=== PATIENT | female | born 1960 | race Caucasian/White ===

== ENCOUNTER 2024-01-19 06:21 | Day surgery (SDC) | payer OTHER, SELFPAY ==
[2023-07-18 14:59] VITALS: BMI 36.1
--- NOTE | 2023-07-19 13:35 | P.CONAN_ITS ---
HPI - Anesthesia Eval Consult details Narrative: 63yo F for Colonoscopy Anesthesia Pre-Procedure Meds Is the patient on any of the following meds?: Dulaglutide (Trulicity) (Last dose 07/15/23) PMFSH Past Medical History Medical History (Updated 07/18/23 @ 15:04 by Rachael Hartman, RN) Hypothyroid Diabetes History of peptic ulcer Surgical History Surgical History (Updated 07/18/23 @ 14:55 by Rachael Hartman, RN) Hx of surgical procedure History of esophagogastroduodenoscopy (EGD) Hx of section History of back surgery Hx of thyroidectomy Hx of colonoscopy Meds Allergies Allergy/AdvReac Type Severity Reaction Status Date / Time bee pollen [bee stings] Allergy Unknown Unknown Verified 07/18/23 15:03 Home Medications Medication Instructions Recorded Confirmed Last Taken Type Aleve 07/18/23 07/18/23 Unknown History cyclobenzaprine 10 mg tablet 10 mg PO BEDTIME PRN Spasms 07/18/23 07/18/23 Unknown History dulaglutide 0.75 mg/0.5 mL 0.75 mg subcut QWEEK 07/18/23 07/18/23 Unknown History subcutaneous pen injector (Trulicity) fluoxetine 20 mg capsule 20 mg PO DAILY 07/18/23 07/18/23 Unknown History metformin 500 mg tablet 1,000 mg PO BID 07/18/23 07/18/23 Unknown History thyroid (pork) 15 mg tablet 15 mg PO DAILY 07/18/23 07/18/23 Unknown History ([place] Thyroid) thyroid (pork) 60 mg tablet 60 mg PO DAILY 07/18/23 07/18/23 Unknown History ([place] Thyroid) Exam Exam Date and Time: July 19, 2023 1335 Height,Weight and Vital Signs: Height 5 ft 3 in Weight 92.533 kg Assessment and Plan Assessment Anesthesia Assessment: Chart Reviewed
[2024-01-17 12:17] VITALS: BMI 36.1
--- NOTE | 2024-01-17 15:31 | HO.ANESPROP2 ---
Documented by User: Marly Sahu NP 01/17/24 15:31 HPI - Anesthesia Eval Consult details Narrative: 63yo F for ?Colonoscopy Anesthesia Pre-Procedure Meds Is the patient on any of the following meds?: Dulaglutide (Trulicity) [facility] Past Medical History Medical History Peptic ulcer GERD (gastroesophageal reflux disease) Hyperlipidemia Depression Migraines Hypothyroid Diabetes History of peptic ulcer Surgical History Surgical History Hx of colectomy Hx of surgical procedure History of esophagogastroduodenoscopy (EGD) Hx of section History of back surgery Hx of thyroidectomy Hx of colonoscopy Social History Social History Patient Tobacco Use Status: Never used Tobacco Use of substances other than those prescribed or required for medical reasons: No Are you DNR?: No Advance Directives: No Advance Directives Information Provided: Yes Meds Allergies Allergy/AdvReac Type Severity Reaction Status Date / Time bee pollen [bee stings] Allergy Unknown Unknown Verified 07/18/23 15:03 morphine Allergy Nausea and Verified 01/19/24 07:20 Vomiting Home Medications ?Medication ?Instructions ?Recorded ?Confirmed ?Last Taken ?Type Aleve 07/18/23 07/18/23 Unknown History cyclobenzaprine 10 mg tablet 10 mg PO BEDTIME PRN Spasms 07/18/23 07/18/23 Unknown History dulaglutide 0.75 mg/0.5 mL 0.75 mg subcut QWEEK 07/18/23 07/18/23 01/06/24 History subcutaneous pen injector (Trulicity) metformin 500 mg tablet 1,000 mg PO BID 07/18/23 07/18/23 Unknown History thyroid (pork) 15 mg tablet 15 mg PO DAILY 07/18/23 07/18/23 Unknown History ([place] Thyroid) thyroid (pork) 60 mg tablet 60 mg PO DAILY 07/18/23 07/18/23 Unknown History ([place] Thyroid) fluoxetine 20 mg capsule 20 mg PO DAILY 01/17/24 01/17/24 Unknown History Exam Height,Weight and Vital Signs: Height 5 ft 3 in Weight 92.533 kg Assessment and Plan Assessment Anesthesia Assessment: Chart Reviewed Documented by User: Lyndsey Kerns MD 01/19/24 08:14 HPI - Anesthesia Eval Anesthesia Pre-Procedure Meds If Yes to any meds - educate patient: Pt education - increased risk of aspiration PMFSH Past Medical History Medical History Peptic ulcer GERD (gastroesophageal reflux disease) Hyperlipidemia Depression Migraines Hypothyroid Diabetes History of peptic ulcer Surgical History Surgical History Hx of colectomy Hx of surgical procedure History of esophagogastroduodenoscopy (EGD) Hx of section History of back surgery Hx of thyroidectomy Hx of colonoscopy History of Problems with Anesthesia: Yes Social History Social History Patient Tobacco Use Status: Never used Tobacco Use of substances other than those prescribed or required for medical reasons: No Are you DNR?: No Advance Directives: No Advance Directives Information Provided: Yes Meds Allergies Allergy/AdvReac Type Severity Reaction Status Date / Time bee pollen [bee stings] Allergy Unknown Unknown Verified 07/18/23 15:03 morphine Allergy Nausea and Verified 01/19/24 07:20 Vomiting Home Medications ?Medication ?Instructions ?Recorded ?Confirmed ?Last Taken ?Type Aleve 07/18/23 07/18/23 Unknown History cyclobenzaprine 10 mg tablet 10 mg PO BEDTIME PRN Spasms 07/18/23 07/18/23 Unknown History dulaglutide 0.75 mg/0.5 mL 0.75 mg subcut QWEEK 07/18/23 07/18/23 01/06/24 History subcutaneous pen injector (Trulicity) metformin 500 mg tablet 1,000 mg PO BID 07/18/23 07/18/23 Unknown History thyroid (pork) 15 mg tablet 15 mg PO DAILY 07/18/23 07/18/23 Unknown History ([place] Thyroid) thyroid (pork) 60 mg tablet 60 mg PO DAILY 07/18/23 07/18/23 Unknown History ([place] Thyroid) fluoxetine 20 mg capsule 20 mg PO DAILY 01/17/24 01/17/24 Unknown History Exam Airway Mallampati Class: II TM Dist: >3cm Neck ROM: Full Loose/Missing/Broken Teeth: No Heart: RRR Lungs: CTA Assessment and Plan Assessment Anesthesia Assessment: Anesthesia Plan Discussed Final Anesthetic Review History of Problems with Anesthesia: Yes NPO: Yes ASA Class: II Final Preanesthetic Review: Meds/Allgs Chart Reviewed, Consent Obtained/Reviewed and Anes Risks/Benef Reviewed Patient Risk: Low Procedure Risk: Low Anesthetic Plan Anesthetic Plan: MAC: Disposition: Standard PACU
[2024-01-19 06:39] VITALS: BP 139/87; PULSE 81; RESP 18; TEMP 36.1; O2SAT 98; BMI 36.0
[2024-01-19 06:51] LABS: Glucose, Whole Blood 187 mg/dL (60-115)
--- NOTE | 2024-01-19 07:29 | P.HPSUR_ITS ---
Pre-Procedural Eval Section A - 24 Hr Update-Section A only Date of Service: 01/19/24 Section B - Complete if H&P > 30 days Chief Complaint: Encounter for screening for malignant neoplasm Details of Present Illness: see H&P no changes Relevant Family History (Specify if Yes): No Relevant Social History: None Medical History: No relevant PMH History of Previous Operations: No relevant previous surgery Allergies: Allergies Allergy/AdvReac Type Severity Reaction Status Date / Time bee pollen [bee stings] Allergy Unknown Unknown Verified 07/18/23 15:03 morphine Allergy Nausea and Verified 01/19/24 07:20 Vomiting Review of Systems Sugical H&P ROS: Negative: Constitution, Cardiovascular, Respiratory, Neurological, Psychiatric, Hem-Onc, Allergic/Immunologic, Gastrointestinal, Genitourinary, Musculoskeletal, Integumentary, Endocrine and Eyes/Ears/N ose/Throat Exam Surgical H&P Exam: Normal: HEENT, Normal: Heart, Normal: Lungs, Normal: Extremities, Normal: Abdomen, Normal: Skin and Normal: Neurological Plan Diagnosis/Plan: Unchanged I have reviewed the history and physical and performed a pertinent physical examination on my patient. No changes have occurred unless specified. Time Spent With Patient Time: Total time managing care of this patient today ____ minutes.
[2024-01-19 08:03] VITALS: BP 111/63; PULSE 80; RESP 12; TEMP 36.1; O2SAT 97
[2024-01-19 08:18] VITALS: BP 110/67; PULSE 78; RESP 16; TEMP 36.1; O2SAT 98
--- NOTE | 2024-01-19 09:17 | OP_ITS ---
DATE OF SERVICE: 01/19/2024 SURGEON: Alber Zuñiga MD INDICATIONS: Colon cancer screening. PREOPERATIVE DIAGNOSIS: POSTOPERATIVE DIAGNOSIS: PROCEDURE PERFORMED: Colonoscopy to the neoterminal ileum. ESTIMATED BLOOD LOSS: COMPLICATIONS: ANESTHESIA: Monitored anesthesia care. ASSISTANTS: SPECIMENS: DESCRIPTION OF PROCEDURE: A history and physical was performed. The risks and benefits of the procedure were explained to the patient. Informed consent was obtained. The patient was placed in the left lateral decubitus position. A digital rectal exam was performed and was found to be normal. The Olympus pediatric video colonoscope was introduced into the rectum and advanced to the ileocolonic anastomosis. Examination was performed. The scope was removed. She tolerated the procedure well and was returned to the recovery area in stable condition. FINDINGS: The neoterminal ileum was normal. The visualized colonic mucosa was normal. The quality of the prep was good. No polyps were identified. There was scattered diverticulosis throughout the colon. Retroflexed examination showed small internal hemorrhoids. IMPRESSION: Normal colonoscopy. RECOMMENDATION: 1. Follow up as needed. 2. Repeat colonoscopy is recommended in 5 years because of the patient's prior history. MD MANDI Rangel/MODL / [id number]
== END 2024-01-19 08:40 | disposition home or self-care (01) ==
PROVIDERS: PCP Nurse Practitioner Family; Visit Provider Internal Medicine Gastroenterology
PROC: 0DJD8ZZ Inspection of Lower Intestinal Tract, Via Natural or Artificial Opening Endoscopic (ICD-10-PCS; CPT 45378; principal; 2024-01-19 07:30)
DX: Z12.11 Encounter for screening for malignant neoplasm of colon (principal); Z80.0 Family history of malignant neoplasm of digestive organs; Z86.010 Personal history of colon polyps; Z90.49 Acquired absence of other specified parts of digestive tract; K57.30 Diverticulosis of large intestine without perforation or abscess without bleeding; K64.8 Other hemorrhoids; K21.9 Gastro-esophageal reflux disease without esophagitis; E03.9 Hypothyroidism, unspecified; E11.9 Type 2 diabetes mellitus without complications; Z79.84 Long term (current) use of oral hypoglycemic drugs; Z79.85 Long-term (current) use of injectable non-insulin antidiabetic drugs; Z79.899 Other long term (current) drug therapy; Z88.5 Allergy status to narcotic agent; Z98.890 Other specified postprocedural states
CPT/HCPCS: 45378; 82947; J2405; J2704